=== PATIENT | female | born 2000 | race Hispanic/Latino ===

== ENCOUNTER 2019-08-24 18:49 | Emergency (ER) | payer MEDICAID ==
[2019-08-24] MEDS ORDERED: SODIUM CHLORIDE 0.9% 1000ML 1,000 ML IV ONE (18:50)
[2019-08-24 20:53] LABS: APPEARANCE,URINE CLOUDY (CLEAR); BILIRUBIN,URINE NEGATIVE (NEGATIVE); COLOR,URINE YELLOW (YELLOW); GLUCOSE, URINE (UA) NEGATIVE (NEGATIVE); KETONES,URINE >=80 mg/dL (NEGATIVE); LEUKOCYTE ESTERASE ,URINE MODERATE (NEGATIVE); NITRATE,URINE NEGATIVE (NEGATIVE); OCCULT BLOOD,URINE NEGATIVE (NEGATIVE); PROTEIN,URINE NEGATIVE (NEGATIVE); UROBILINOGEN,URINE 0.2 mg/dL (0.2-1.0)
[2019-08-24 20:56] LABS: BASOPHILS % (AUTO) 0.3 % (0.0-5.0); EOSINOPHILS % (AUTO) 0.8 % (0.0-8.0); HEMATOCRIT 36.1 % (36-48); LYMPHOCYTES % (AUTO) 13.8 % (21.0-51.0); MEAN CORPUSCULAR HEMOGLOBIN 29.1 pg (27.0-33.0); MEAN CORPUSCULAR HGB CONC 32.7 g/dL (32.0-36.0); MEAN CORPUSCULAR VOLUME 89.1 fL (80-100); MONOCYTES % (AUTO) 8.5 % (3.0-13.0); NEUTROPHILS % (AUTO) 76.1 % (40.0-77.0); PLATELET COUNT (AUTO) 193 K/uL (130-400); RED BLOOD CELL COUNT(AUTO) 4.05 MIL/uL (4.00-5.50); RED CELL DISTRIBUTION WIDTH 13.7 % (11.0-15.5); WHITE BLOOD COUNT (AUTO) 7.5 K/uL (4.8-10.8)
[2019-08-24 21:04] LABS: CREATININE 0.5 mg/dL (0.5-1.5); POTASSIUM 3.8 mmol/L (3.5-5.1)
[2019-08-24 21:07] LABS: BACTERIA,URINE Few /HPF (None Seen); RBC,URINE 0-1 /HPF (0-1); SQUAMOUS EPITHELIAL CELL,UR Moderate /HPF (0-2)
[2019-08-24 21:09] LABS: YEAST,URINE BUDDING Few /HPF (None Seen)
[2019-08-24 21:09] LABS: ALBUMIN 2.8 g/dL (3.5-5.0); TOTAL PROTEIN, SERUM 7.7 g/dL (6.0-8.3)
== END 2019-08-25 00:18 | disposition left against medical advice (07) ==
LOC: EDH 18:49
DX: O26.893 Other specified pregnancy related conditions, third trimester (principal); R42 Dizziness and giddiness; Z3A.36 36 weeks gestation of pregnancy
CPT/HCPCS: 36415; 80053; 81001; 85025; 87088; 93005; 96360; 99284; J7030

== ENCOUNTER 2019-08-26 11:18 | Observation (INO) | payer MEDICAID ==
[~2019-08-26] VITALS: Ht 154.9 cm; Wt 66.2 kg
[2019-08-26] MEDS ORDERED: LACTATED RINGERS 1000ML 1,000 ML IV PRN (12:09)
[2019-08-26] MEDS ORDERED: ACETAMINOPHEN 325 MG TAB PO PRN (12:15)
[2019-08-26] MEDS ORDERED: PROMETHAZINE HCL 25 MG/ML 1ML AMPULE IM PRN (13:00)
[2019-08-26] MEDS: AMPICILLIN 2GM+NS 100ML 100 ML IV SCH ×2 (13:07→18:41)
[2019-08-26] MEDS ORDERED: GENTAMICIN 80 MG/NS 100 ML PB 100 ML IV SCH (14:00)
[2019-08-26] MEDS ORDERED: GENTAMICIN SULFATE 80 MG/2 ML VIAL IV SCH (14:00)
[2019-08-26 19:26] VITALS: BP 106/72
--- NOTE | 2019-08-26 20:15 | NUR ---
PATIENT REPORTS [place]ING IN THE [place] [facility] [place] UTI, BUT LEAVING AMA DUE TO BEING IN CLOSE PROXIMITY WITH POSSIBLE COVID PATIENTS. PT REPORTS THAT THIS IS THE ONLY POSSIBLE EXPOSE SHE HAS HAD. Addendum: 08/26/19 at 2017 by KYUNG MCCARTHY RN RN Amended: Links added.
== END 2019-08-26 21:05 | disposition home or self-care (01) ==
LOC: EDH 11:18 → LDH 12:04
PROVIDERS: ADMIT Obstetrics & Gynecology; ATTEND Obstetrics & Gynecology
DX: O26.893 Other specified pregnancy related conditions, third trimester (principal); R51 Headache; R10.2 Pelvic and perineal pain; R42 Dizziness and giddiness; R11.2 Nausea with vomiting, unspecified; Z20.828 Contact with and (suspected) exposure to other viral communicable diseases; Z3A.37 37 weeks gestation of pregnancy
CPT/HCPCS: 36415; 81001; 85027; 87088; 96361 ×2; 96365; 96366; 96368; 96372; 99284; G0378 ×9; J0290 ×3; J1580; J2550; U0003

== ENCOUNTER 2019-09-10 08:00 | Inpatient (IN) | payer MEDICAID ==
[~2019-09-10] VITALS: Ht 152.4 cm; Wt 68.5 kg
[2019-09-20] MEDS ORDERED: LACTATED RINGERS 1000ML 1,000 ML IV PRN (17:14)
[2019-09-20] MEDS ORDERED: AMPICILLIN 1GM+NS 50ML 50 ML IV SCH (17:15)
[2019-09-20] MEDS ORDERED: AMPICILLIN 2GM+NS 100ML 100 ML IV SCH (17:15)
[2019-09-20] MEDS ORDERED: LACTATED RINGERS 1000ML 1,000 ML IV ONE (17:22)
[2019-09-20] MEDS ORDERED: AMPICILLIN 2GM+NS 100ML 100 ML IV ONE (17:22)
[2019-09-20 18:06] LABS: HEMATOCRIT 32.2 % (36-48); MEAN CORPUSCULAR HEMOGLOBIN 28.7 pg (27.0-33.0); MEAN CORPUSCULAR HGB CONC 32.9 g/dL (32.0-36.0); MEAN CORPUSCULAR VOLUME 87.3 fL (80-100); RED BLOOD CELL COUNT(AUTO) 3.69 MIL/uL (4.00-5.50); RED CELL DISTRIBUTION WIDTH 14.6 % (11.0-15.5); WHITE BLOOD COUNT (AUTO) 6.2 K/uL (4.8-10.8)
[2019-09-20 18:07] LABS: APPEARANCE,URINE CLOUDY (CLEAR); BILIRUBIN,URINE NEGATIVE (NEGATIVE); COLOR,URINE YELLOW (YELLOW); GLUCOSE, URINE (UA) 100 mg/dL (NEGATIVE); KETONES,URINE NEGATIVE (NEGATIVE); LEUKOCYTE ESTERASE ,URINE SMALL (NEGATIVE); NITRATE,URINE NEGATIVE (NEGATIVE); OCCULT BLOOD,URINE NEGATIVE (NEGATIVE); PROTEIN,URINE NEGATIVE (NEGATIVE); UROBILINOGEN,URINE 0.2 mg/dL (0.2-1.0)
[2019-09-20 18:13] LABS: BACTERIA,URINE Few /HPF (None Seen); RBC,URINE 0-1 /HPF (0-1); SQUAMOUS EPITHELIAL CELL,UR Moderate /HPF (0-2)
[2019-09-20] MEDS ORDERED: LACTATED RINGERS 500 ML 500 ML IV PRN (18:45)
[2019-09-20] MEDS ORDERED: NALOXONE HCL 0.4 MG/1 ML ML IV PRN (18:45)
[2019-09-20] MEDS ORDERED: DINOPROSTONE 10 MG VAGINAL SUPP VG SCH (18:45)
[2019-09-20] MEDS ORDERED: MEPERIDINE-PF 50 MG/ML SYG IVP PRN (18:45)
[2019-09-20] MEDS ORDERED: EPHEDRINE SULFATE 50 MG/ML AMPULE IVP PRN (18:45)
[2019-09-20] MEDS ORDERED: LIDOCAINE HCL 1% 20 ML VIAL INJ PRN (18:45)
[2019-09-20] MEDS ORDERED: ROPIVACAINE 0.2% 100ML VIAL 100 ML EP SCH (18:45)
[2019-09-20] MEDS ORDERED: PROMETHAZINE HCL 25 MG/ML 1ML AMPULE IM PRN (18:45)
[2019-09-20 19:45] VITALS: BP 103/57
[2019-09-20] MEDS ORDERED: CEFAZOLIN SODIUM 1 GM VIAL ONE (23:27)
[2019-09-20] MEDS ORDERED: OXYTOCIN 10 USP UNITS/ML ONE (23:58)
[2019-09-20] MEDS ORDERED: DURAMORPH PF1 MG/ML 10ML AMP IV ONE (23:59)
[2019-09-21] MEDS ORDERED: CEFAZOLIN SODIUM 1 GM VIAL IVP ONE (00:03)
[2019-09-21] MEDS ORDERED: GLYCOPYRROLATE 1 MG/5 ML SYRINGE ONE (00:13)
[2019-09-21] MEDS ORDERED: ONDANSETRON HCL 4 MG/2 ML VIAL ONE ×2 (00:31→03:13)
[2019-09-21] MEDS ORDERED: MEPERIDINE-PF 75 MG/ML SYG IM PRN (01:00)
[2019-09-21] MEDS ORDERED: OXYTOCIN-LR 20 UNITS/1000 ML 1,000 ML IV PRN (01:00)
[2019-09-21] MEDS ORDERED: SODIUM CHLORIDE 0.9% 10 ML VIAL IVP PRN (01:00)
[2019-09-21] MEDS ORDERED: DEXTROSE 5 %-0.45 % NACL 1,000 ML IV PRN (01:00)
[2019-09-21] MEDS ORDERED: PROMETHAZINE HCL 25 MG/ML 1ML AMPULE IM PRN (01:00)
[2019-09-21] MEDS ORDERED: LACTATED RINGERS 1000ML 1,000 ML IV SCH (01:30)
[2019-09-21] MEDS ORDERED: CEFAZOLIN SODIUM 1 GM VIAL IVP PRN (01:30)
[2019-09-21 03:15] VITALS: BP 108/67
[2019-09-21] MEDS ORDERED: PNV1TABL17 PO (06:12)
[2019-09-21] MEDS ORDERED: DiphenhydrAMINE HCL 50 MG/ML VIAL ONE (06:47)
[2019-09-21] MEDS ORDERED: ACETAMINOPHEN EXTRA STRENGTH 500 MG TABLET PO PRN (07:45)
[2019-09-21] MEDS ORDERED: HYDROCODONE/ACETAMINOPHEN 5/325 MG TAB PO PRN (07:45)
[2019-09-21] MEDS ORDERED: BISACODYL 10 MG SUPP.RECT RC PRN (07:45)
[2019-09-21 08:00] VITALS: BP 107/64
--- NOTE | 2019-09-21 08:00 | NUR ---
ASSESSMENT DONE AND 800CC OF YELLOW URINE DISCARDED. PATIENT DID NOT WISH FOR NAVA CATHETER TO BE REMOVED UNTIL AFTER LUNCH. PATIENT IS STABLE AND DENIES ANY SYMPTOMS OF COVID. UPONS INSTRUCTING PATIENT ON THE IMPORTANCE OF USING IS AND INSTRUCTING HER ON PROPER USE, SHE WOULD COUGH EVERY TIME SHE WOULD INHALE. EMPHASIZED IMPORTANCE OF USE AND NEED TO USE EVERY 2 HOURS INSTRUCTED ESPECIALLY SINCE ONE OF THE SIDE EFFECTS OF COVID 19 IS COUGH AND PNEUMONIA. SHE REACHED HER GOAL OF 2100 BUT NOT WITHOUT COUGHING ON INHALATION. PERICARE WAS DONE AND LOCHIA IS SMALL. SMALL BINDER APPLIED AFTER PERICARE.
[2019-09-21] MEDS: DOCUSATE SODIUM 100 MG CAP PO SCH ×2 (08:16→20:31)
[2019-09-21] MEDS: IBUPROFEN 600 MG TABLET PO PRN ×3 (08:17→21:51)
[2019-09-21] MEDS: ACETAMINOPHEN-CODEINE 300/30MG TAB PO PRN ×2 (08:18→20:32)
[2019-09-21] MEDS: SIMETHICONE 80 MG TAB.CHEW PO PRN ×2 (08:18→20:31)
[2019-09-21] MEDS: DIPH,PERTUSS(ACELL),TET VAC/PF 0.5 ML VIAL IM SCH (08:20)
--- NOTE | 2019-09-21 09:15 | NUR ---
PATIENT RESTING QUIETYLY AND DENIES ANY PROBLEMS.
[2019-09-21 09:19] LABS: RAPID PLASMA REAGIN NONREACTIVE (NONREACTIVE)
[2019-09-21 12:00] VITALS: BP 102/57
--- NOTE | 2019-09-21 12:00 | NUR ---
NAVA CATHETER REMOVED AND PERICARE GIVEN, 600CC OF YELLOW URINE DISCARDED. LOCHIA IS SMALL. PATIENT HAS ABDOMINAL BINDER ON. WAS ASSISTED UP TO CHAIR AND TOLERATED ACTIVITY WELL WITHOUT ANY DIFFICULTY. LUNCH WAS BROUGHT IN AND GIVEN TO PATIENT. ENCOURAGED PATIENT TO AMBULATE IN ROOM.
--- NOTE | 2019-09-21 13:15 | NUR ---
PATIENT ATTEMPTING TO VOID AND COULD NOT VOID PATIENT ENCOURAGED TO DRINK WATER AND WALK IN ROOM TO STIMULATE BLADDER SO PATIENT CAN VOID AND PASS GAS.
[2019-09-21 16:00] VITALS: BP 97/69
--- NOTE | 2019-09-21 16:00 | NUR ---
PATIENT HAD JUST VOIDED 500CC OF YELLOW URINE. DENIES ANY ISSUES WITH AMBULATING IN HALLWAY. FUNDUS REMAINS DISTENDED AND OFFERED SUPPOSITORY WHICH PATIENT DECLINED. ENCOURAGE TO WALK IN ROOM.
--- NOTE | 2019-09-21 18:00 | NUR ---
PIV REMOVED AND SITE WNL. PATIENT HAS REMAINED STABLE AND WAS ABLE TO VOID 500CC AND THEN 800CC. TOLERATING DIET WELL AND DENIES ANY DIZZINESS. PT STATES AFRAID INCISION MIGHT OPEN UP DUE TO SOME SEROSANGUINEOUS FLUID DRAINING FROM INCISION AND HAS A SMALL GAP BETWEEN EDGES OF CUT AND STERI STRIPS APPLIED. OTHERWISE INCISION LOOKS WELL.
--- NOTE | 2019-09-21 19:15 | NUR ---
REPORT GIVEN TO DEANDRA ACRSON AND PATIENT CARE TRANSFERED AT THIS TIME.
[2019-09-21 20:30] VITALS: BP 102/63
--- NOTE | 2019-09-21 20:30 | NUR ---
STATUS/TEACHING ENCOURAGED TO PUSH FLUIDS, USE INCENTIVE SPIROMETRY EVERY 2 HOURS, CONTINUE USING AT HOME, NOT PASSING FLATUS, INSTRUCTED TO AMBULATE IN ROOM, TURN TO SIDES FREQUENTLY WHILE IN BED, OFFERED DULCOLAX SUPPOSITORY Addendum: 09/21/19 at 2104 by DENISE ZAMORANO LVN Amended: Links added.
[2019-09-21 23:50] VITALS: BP 104/72
[2019-09-22] MEDS: IBUPROFEN 800 MG TAB PO SCH ×2 (03:27→11:31)
[2019-09-22 03:45] VITALS: BP 94/54
[2019-09-22 07:05] LABS: HEMATOCRIT 24.6 % (36-48); MEAN CORPUSCULAR HEMOGLOBIN 29.1 pg (27.0-33.0); MEAN CORPUSCULAR HGB CONC 32.9 g/dL (32.0-36.0); MEAN CORPUSCULAR VOLUME 88.5 fL (80-100); RED BLOOD CELL COUNT(AUTO) 2.78 MIL/uL (4.00-5.50); RED CELL DISTRIBUTION WIDTH 15.1 % (11.0-15.5); WHITE BLOOD COUNT (AUTO) 7.5 K/uL (4.8-10.8)
[2019-09-22] MEDS: DOCUSATE SODIUM 100 MG CAP PO SCH (07:43)
[2019-09-22] MEDS: SIMETHICONE 80 MG TAB.CHEW PO PRN (07:43)
[2019-09-22] MEDS: DIPH,PERTUSS(ACELL),TET VAC/PF 0.5 ML VIAL IM SCH (07:45)
[2019-09-22 08:00] VITALS: BP 92/57
--- NOTE | 2019-09-22 08:00 | NUR ---
PATIENT ASSESSED AND DENIES PAIN. INCISION OPEN TO AIR AND PATIENT STATES TOOK OFF STERI STRIPS WHILE SHE WAS SHOWERING. INCISION IS CLEAN AND HAS ELLEN PAD OVER INCISION. SOME SLIGHT OOZING NOTED ON PAD. PT NOT WEARING MASK AND WAS INSTRUCTED ON IMPORTANCE OF WEARING MASK ESPECIALLY IF SHE TAKES BABY HOME TO PROTECT BABY AGAINST COVID AND VERBALIZED UNDERSTANDING. PATIENT ALSO INSTRUCTED ON NEED TO CONTINUE USING INCENTIVE SPIROMETER EVERY 2 HOURS. HAD QUESTIONS REGARDING WHEN POSITIVE FOR COVID. PATIENT INDICATED WANTING TO BREASTFEED.
[2019-09-22 09:12] LABS: HEPATITIS Bs ANTIGEN SCREEN P Negative (Negative)
[2019-09-22 12:00] VITALS: BP 103/62
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
--- NOTE | 2019-09-22 12:20 | NUR ---
PATIENT WAS TAKEN VIA W/C TO [facility]ILY [facility] CARRYING BABY IN [place]. PATIENT IS STABLE AND DENIES PAIN. MOTRIN WAS ADMINISTERED PRIOR TO DISCHARGE WHILE BABY WAS BEING DISCHARGED.
== END 2019-09-22 12:20 | disposition home or self-care (01) | DRG 540 ==
LOC: LDH 09-20 17:03 → WSH 09-21 03:14
PROVIDERS: ADMIT Obstetrics & Gynecology; ATTEND Obstetrics & Gynecology
PROC: 10D00Z1 Extraction of Products of Conception, Low, Open Approach (ICD-10-PCS; principal; 2019-09-21)
PROC: 3E0234Z Introduction of Serum, Toxoid and Vaccine into Muscle, Percutaneous Approach (ICD-10-PCS; 2019-09-21)
DX: O76 Abnormality in fetal heart rate and rhythm complicating labor and delivery (principal); O98.52 Other viral diseases complicating childbirth; Z37.0 Single live birth; O99.52 Diseases of the respiratory system complicating childbirth; U07.1 COVID-19; J98.8 Other specified respiratory disorders; Z3A.40 40 weeks gestation of pregnancy; Z23 Encounter for immunization
CPT/HCPCS: 36415; 59510; 76805; 81001; 85027; 86592; 86701; 86850; 86900; 86901; 87340; 87390; 88307; 90715; A4344; G0378; J0290; J0690; J1200; J2274; J2405; J2590; J3490; J7120; U0003

== ENCOUNTER 2022-05-03 17:09 | Observation (INO) | payer MEDICAID, OTHER ==
[~2022-05-03] VITALS: Ht 157.5 cm; Wt 73.0 kg
[~2022-05-03 17:09] MED LIST: PNV1TABL17 PO
[2022-05-03 18:30] VITALS: BP 109/57
[2022-05-03 18:47] LABS: APPEARANCE,URINE CLEAR (CLEAR); BILIRUBIN,URINE NEGATIVE (NEGATIVE); COLOR,URINE LIGHT-YELLOW (YELLOW); GLUCOSE, URINE (UA) NEGATIVE (NEGATIVE); KETONES,URINE 5 mg/dL (NEGATIVE); LEUKOCYTE ESTERASE ,URINE NEGATIVE Leu/uL (NEGATIVE); NITRATE,URINE NEGATIVE (NEGATIVE); OCCULT BLOOD,URINE NEGATIVE (NEGATIVE); PROTEIN,URINE 10 mg/dL (NEGATIVE); UROBILINOGEN,URINE 0.2 mg/dL (0.2-1.0)
[2022-05-03 18:52] LABS: AMPHET/METH SCREEN,URINE NEGATIVE (NEGATIVE); BARBITURATE SCREEN, URINE NEGATIVE (NEGATIVE); BENZODIAZEPINES SCREEN,URINE NEGATIVE (NEGATIVE); CANNABINOID SCREEN,URINE NEGATIVE (NEGATIVE); COCAINE SCREEN,URINE NEGATIVE (NEGATIVE); OPIATE SCREEN,URINE NEGATIVE (NEGATIVE); PHENCYCLIDINE SCREEN,URINE NEGATIVE (NEGATIVE)
[2022-05-03 18:58] LABS: BACTERIA,URINE FEW /HPF (None Seen); HYALINE CASTS, URINE 0-1 /LPF (0-1 /LPF); RBC,URINE 0-1 /HPF (0-1); SQUAMOUS EPITHELIAL CELL,UR MOD /HPF (0-2)
[2022-05-03 19:02] LABS: HCG,QUALITATIVE URINE POSITIVE (NEGATIVE)
[2022-05-03] MEDS ORDERED: LACTATED RINGERS 1000ML 1,000 ML IV PRN (21:00)
== END 2022-05-04 08:35 | disposition home or self-care (01) ==
LOC: EDH 17:09 → LDH 17:10
PROVIDERS: ADMIT Obstetrics & Gynecology; ATTEND Obstetrics & Gynecology
DX: O99.891 Other specified diseases and conditions complicating pregnancy (principal); M54.9 Dorsalgia, unspecified; O26.893 Other specified pregnancy related conditions, third trimester; R10.9 Unspecified abdominal pain; Z3A.35 35 weeks gestation of pregnancy; V89.2XXA Person injured in unspecified motor-vehicle accident, traffic, initial encounter; Y93.89 Activity, other specified; Y92.488 Other paved roadways as the place of occurrence of the external cause; Z79.899 Other long term (current) drug therapy
CPT/HCPCS: 96360; 96361 ×2; 99284; 80305; 84702; 81001; 81025; 36415; 76805; G0378 ×12; J7120